=== PATIENT | male | born 1940 | race Caucasian/White ===

== ENCOUNTER 2017-02-24 08:01 | Day surgery (SDC) | payer MEDICARE, OTHER ==
--- NOTE | ~2017-02-24 | EGD ---
EGD REPORT [facility] [address] [place] [address] NAME: ISSA MANCUSO DO : 42 STATUS : REG [facility]#: [id number] AGE: 76 ADM/REG DATE : 02/24/17 MR#: [id number] REPORT SERV DATE: 02/24/17 DICTATED BY: REILLY ROWLAND DATE: 02/24/17 REPORT STATUS : Draft [facility] DATE: 02/24/17 Endoscopy Center Patient Name: Issa Mancuso Date of : 1940 Attending MD: REILLY ROWLAND MD Procedure Date No Time: 02/24/2017 Procedure: Colonoscopy Indications: Hematochezia; FHx negative. Patient Profile: Informed consent was obtained from the patient by me prior to the procedure. Risks, benefits, and alternatives were discussed including the risk of bleeding, perforation, infection, reaction to medicine, missed lesion, and cardiopulmonary complications. Referring MD: BASIL MARC MD, Issa Mancuso Medicines: Monitored Anesthesia Care Complications: No immediate complications. Procedure: Pre-Anesthesia Assessment: - ASA Grade Assessment: III - A patient with severe systemic disease. After I obtained informed consent, the scope was passed under direct vision. Throughout the procedure, the patient's blood pressure, pulse, and oxygen saturations were monitored continuously. The PCF [id number] was introduced through the anus and advanced to the cecum, identified by appendiceal orifice and ileocecal valve. The colonoscope was slowly withdrawn with careful examination all mucosal surfaces including specific attention around flexures and tip deflection behind folds; retroflexion performed in rectum. The colonoscopy was performed without difficulty. The patient tolerated the procedure well. The quality of the bowel preparation was adequate. The ileocecal valve, appendiceal orifice and rectum were photographed. Findings: The colon (entire examined portion) appeared normal. Multiple small-mouthed diverticula were found in the sigmoid colon. Internal hemorrhoids were found during retroflexion and were mild. Impression: - The entire examined colon is normal. - Diverticulosis in the sigmoid colon. - Internal hemorrhoids. Recommendation: - Patient has a contact number available for emergencies. The signs and symptoms of potential delayed EGD REPORT [address] [address] NAME: ISSA MANCUSO DO : 42 STATUS : REG [facility] PAT#: [id number] AGE: 76 ADM/REG DATE : 02/24/17 MR#: [id number] REPORT SERV DATE: 02/24/17 DICTATED BY: REILLY ROWLAND DATE: 02/24/17 REPORT STATUS : Draft TRANSCRIBED BY: [facility] DATE: 02/24/17 complications were discussed with the patient. Return to normal activities tomorrow. Written discharge instructions were provided to the patient. - Regular diet. - Continue present medications. - Repeat colonoscopy is not recommended for screening purposes based on age/comorbidities. Procedure Code(s): --- Professional --- 04104, Colonoscopy, flexible, proximal to splenic flexure; diagnostic, with or without collection of specimen(s) by brushing or washing, with or without colon decompression (separate procedure) Diagnosis Code(s): --- Professional --- K57.30, Diverticulosis of large intestine without perforation or abscess without bleeding K92.1, Melena CPT copyright 2013 [employer]. All rights reserved. The codes documented in this report are preliminary and upon ip network architect review may be revised to meet current compliance requirements. REILLY ROWLAND MD 02/24/2017 9:38 AM This report has been signed electronically. Number of Addenda: 0 Note Initiated On: 02/24/2017 8:56 AM Scope Withdrawal Time 0 hours 12 minutes 39 seconds [id number] [place] [id number]
--- NOTE | ~2017-02-24 | EGD ---
EGD REPORT [facility] [address] [place] [address] NAME: ISSA MANCUSO DO : 42 STATUS : REG [facility]#: [id number] AGE: 76 ADM/REG DATE : 02/24/17 MR#: [id number] REPORT SERV DATE: 02/24/17 DICTATED BY: REILLY ROWLAND DATE: 02/24/17 REPORT STATUS : Draft [facility]: [facility] DATE: 02/24/17 Endoscopy Center Patient Name: Issa Mancuso Date of : 1940 Attending MD: REILLY ROWLAND MD Procedure Date No Time: 02/24/2017 Procedure: Upper GI endoscopy Indications: Dysphagia, Heartburn; no acid suppression. Patient Profile: Informed consent was obtained from the patient by me prior to the procedure. Risks, benefits, and alternatives were discussed including the risk of bleeding, perforation, infection, reaction to medicine, missed lesion, and cardiopulmonary complications. Referring MD: BASIL Rudolph MD Medicines: Monitored Anesthesia Care Complications: No immediate complications. Procedure: After obtaining informed consent, the endoscope was passed under direct vision. Throughout the procedure, the patient's blood pressure, pulse, and oxygen saturations were monitored continuously. The GIF H190 [id number] was introduced through the mouth, and advanced to the second part of duodenum. The endoscope was withdrawn with careful examination all mucosal surfaces including retroflexion stomach. The upper GI endoscopy was accomplished without difficulty. The patient tolerated the procedure well. Findings: The first part of the duodenum and 2nd part of the duodenum were normal. Biopsies were taken with a cold forceps for histology. Patchy mildly erythematous mucosa was found in the gastric body and in the gastric antrum. Biopsies were taken with a cold forceps for histology. The cardia and gastric fundus (on retroflexion) were normal. The examined esophagus was normal. Biopsies were taken with a cold forceps for histology from mid and upper. The esophagus and gastroesophageal junction were examined with white light. There was no visual evidence of Robledo's esophagus. Impression: - Normal first part of the duodenum and 2nd part of the duodenum. Biopsied. - Erythematous mucosa in the gastric body and antrum. Biopsied. - Normal cardia and gastric fundus. - Normal esophagus. Biopsied. EGD REPORT [place] [id number] [place]. [address] NAME: ISSA MANCUSO DO : 42 STATUS : REG [facility]#: [id number] AGE: 76 ADM/REG DATE : 02/24/17 MR#: [id number] REPORT SERV DATE: 02/24/17 DICTATED BY: REILLY ROWLAND DATE: 02/24/17 REPORT STATUS : Draft TRANSCRIBED BY: [facility] DATE: 02/24/17 - There is no endoscopic evidence of Robledo's esophagus. Recommendation: - Patient has a contact number available for emergencies. The signs and symptoms of potential delayed complications were discussed with the patient. Return to normal activities tomorrow. Written discharge instructions were provided to the patient. - Regular diet. - Continue present medications. - Await pathology results. - Start Nexium OTC daily. - Restart ASA today. Procedure Code(s): --- Professional --- 88199, Esophagogastroduodenoscopy, flexible, transoral; with biopsy, single or multiple Diagnosis Code(s): --- Professional --- K31.9, Disease of stomach and duodenum, unspecified R13.10, Dysphagia, unspecified R12, Heartburn CPT copyright 2013 [employer]. All rights reserved. The codes documented in this report are preliminary and upon freight brake operator review may be revised to meet current compliance requirements. REILLY ROWLAND MD 02/24/2017 9:13 AM This report has been signed electronically. Number of Addenda: 0 Note Initiated On: 02/24/2017 8:51 AM Scope Withdrawal Time 0 hours 0 minutes 0 seconds [id number] [place] [id number]
[~2017-02-24 08:01] MED LIST: *DENIES; ASAB PO; DSS PO; RED YEAS1 PO
== END 2017-02-24 23:59 | disposition home or self-care (01) ==
LOC: DMU 08:01
PROVIDERS: Internal Medicine Gastroenterology
PROC: 0DB68ZZ Excision of Stomach, Via Natural or Artificial Opening Endoscopic (ICD-10-PCS; 2017-02-24)
PROC: 0DJD8ZZ Inspection of Lower Intestinal Tract, Via Natural or Artificial Opening Endoscopic (ICD-10-PCS; 2017-02-24)
PROC: 0DB98ZZ Excision of Duodenum, Via Natural or Artificial Opening Endoscopic (ICD-10-PCS; principal; 2017-02-24 11:00)
PROC: 0DB58ZZ Excision of Esophagus, Via Natural or Artificial Opening Endoscopic (ICD-10-PCS; 2017-02-24 11:00)
DX: K29.50 Unspecified chronic gastritis without bleeding (principal); B96.81 Helicobacter pylori [H. pylori] as the cause of diseases classified elsewhere; K57.30 Diverticulosis of large intestine without perforation or abscess without bleeding; K92.1 Melena; K31.9 Disease of stomach and duodenum, unspecified; R13.10 Dysphagia, unspecified; R12 Heartburn; Z79.82 Long term (current) use of aspirin; Z95.5 Presence of coronary angioplasty implant and graft; Z88.1 Allergy status to other antibiotic agents; Z88.8 Allergy status to other drugs, medicaments and biological substances
CPT/HCPCS: 88305; 88342